=== PATIENT | female | born 1955 | race Caucasian/White ===

== ENCOUNTER 2020-05-01 12:50 | Inpatient (IN) | payer MEDICAID ==
[~2020-05-01] VITALS: Ht 147.3 cm; Wt 44.5 kg
[2020-05-01 15:56] LABS: BASOPHILS % (AUTO) 0.9 % (0.0-2.0); EOSINOPHILS % (AUTO) 2.1 % (1.0-6.0); HEMATOCRIT 42.4 % (36-46); HEMOGLOBIN 13.9 g/dL (12.0-16.0); LYMPHOCYTES # (AUTO) 2.4 K/uL (1.0-4.8); LYMPHOCYTES % (AUTO) 37.2 % (22.0-44.0); MEAN CORPUSCULAR HGB CONC 32.9 G/dL (31.0-37.0); MEAN CORPUSCULAR VOLUME 88 fL (80-100); MONOCYTES # (AUTO) 0.5 K/uL (0.1-1.0); MONOCYTES % (AUTO) 8.2 % (2.0-9.0); NEUTROPHILS # (AUTO) 3.3 K/uL (1.8-7.7); NEUTROPHILS % (AUTO) 51.6 % (40.0-70.0); PLATELET COUNT (AUTO) 286 K/uL (150-450); RED BLOOD CELL COUNT(AUTO) 4.81 MIL/uL (4.00-5.20); RED CELL DISTRIBUTION WIDTH 15.3 % (11.5-14.5)
[2020-05-01 16:26] LABS: ANION GAP 9 mmol/L (8-16); CALCIUM, TOTAL 9.1 mg/dL (8.8-10.5); CARBON DIOXIDE 30 mmol/L (22-29); CHLORIDE 101 mmol/L (98-107); CREATININE 0.64 mg/dL (0.60-1.30); GLOMERULAR FILTR. RATE CALC > 60 mL/min (>60); GLUCOSE,RANDOM 123 mg/dL (70-110); POTASSIUM 3.9 mmol/L (3.5-5.1); SODIUM SERUM 140 mmol/L (136-145); UREA NITROGEN, BLOOD 7 mg/dL (7-18)
[2020-05-01 16:31] LABS: ALANINE AMINOTRANSFERASE 29 U/L (12-78); ALBUMIN 3.9 g/dL (3.4-5.0); ALKALINE PHOSPHATASE 105 U/L (46-116); ASPARTATE AMINOTRANSFERASE 29 U/L (15-37); BILIRUBIN,TOTAL 0.6 mg/dL (0.1-1.0); TOTAL PROTEIN, SERUM 7.4 g/dL (6.4-8.2)
[2020-05-01] MEDS ORDERED: HALOPERIDOL 5 MG TABLET PO PRN (17:15)
[2020-05-01] MEDS ORDERED: LORazepam 2 MG TABLET PO PRN (17:15)
[2020-05-01 20:45] VITALS: BP 100/51
[2020-05-02] MEDS ORDERED: PETROLATUM,WHITE 28 GM JELLY TP PRN (08:30)
[2020-05-02] MEDS ORDERED: MAG HYDROX/AL HYDROX/SIMETH ES 30 ML SUSPENSION UDCUP PO PRN (08:30)
[2020-05-02] MEDS ORDERED: ACETAMINOPHEN 325 MG TABLET PO PRN (08:30)
[2020-05-02] MEDS ORDERED: MAGNESIUM HYDROXIDE SUSPENSION 30 ML UDCUP PO PRN (08:30)
[2020-05-02] MEDS ORDERED: BACITRACIN 28.4 GM OINTMENT TP PRN (08:30)
[2020-05-02] MEDS ORDERED: LOPERAMIDE HCL 2 MG CAPSULE PO PRN (08:30)
[2020-05-02] MEDS ORDERED: ONDANSETRON HCL 4 MG TABLET PO PRN (08:30)
[2020-05-02] MEDS ORDERED: CloNIDine HCL 0.1 MG TABLET PO PRN (08:30)
[2020-05-02] MEDS ORDERED: DOCUSATE SODIUM 100 MG CAPSULE PO PRN (08:30)
[2020-05-02] MEDS ORDERED: OMEPRAZOLE 20 MG CAPSULE PO PRN (08:30)
[2020-05-02] MEDS ORDERED: IBUPROFEN 600 MG TABLET PO PRN (08:30)
[2020-05-02] MEDS ORDERED: ALBUTEROL SULFATE HFA 90 MCG/PUFF 8 GM INHALER IH PRN (08:30)
[2020-05-02] MEDS ORDERED: BENZOCAINE/MENTHOL LOZENGE MM PRN (08:30)
[2020-05-02] MEDS: OLANZapine 5 MG TABLET PO SCH ×2 (12:15→16:44)
[2020-05-02] MEDS ORDERED: OLANZapine 5 MG TABLET PO SCH (17:00)
[2020-05-03] MEDS: OLANZapine 5 MG TABLET PO SCH ×2 (08:51→17:00)
[2020-05-03 16:02] VITALS: BP 119/70
[2020-05-04] MEDS: ZOLPIDEM TARTRATE 10 MG TABLET PO PRN (00:40)
[2020-05-04] MEDS: OLANZapine 5 MG TABLET PO SCH ×2 (08:38→17:00)
[2020-05-04] MEDS: GABAPENTIN 300 MG CAPSULE PO SCH (17:00)
[2020-05-05] MEDS: GABAPENTIN 300 MG CAPSULE PO SCH ×2 (08:59→17:00)
[2020-05-05] MEDS: OLANZapine 5 MG TABLET PO SCH ×2 (09:00→17:00)
[2020-05-06 00:34] VITALS: BP 129/65
[2020-05-06] MEDS: ZOLPIDEM TARTRATE 10 MG TABLET PO PRN ×2 (02:10→20:31)
[2020-05-06] MEDS: GABAPENTIN 300 MG CAPSULE PO SCH ×2 (09:00→16:39)
[2020-05-06] MEDS: OLANZapine 5 MG TABLET PO SCH ×2 (09:00→16:40)
[2020-05-07] VITALS: BP 117/61
[2020-05-07] MEDS: GABAPENTIN 300 MG CAPSULE PO SCH ×2 (08:14→16:40)
[2020-05-07] MEDS: OLANZapine 5 MG TABLET PO SCH ×2 (08:14→16:41)
[2020-05-07 16:21] VITALS: BP 136/64
[2020-05-08] MEDS: GABAPENTIN 300 MG CAPSULE PO SCH ×2 (08:07→16:23)
[2020-05-08] MEDS: OLANZapine 5 MG TABLET PO SCH ×2 (08:07→16:23)
[2020-05-08 08:12] VITALS: BP 112/63
[2020-05-08] MEDS ORDERED: LORazepam 2 MG/ML VIAL ONE (10:53)
[2020-05-08] MEDS ORDERED: DiphenhydrAMINE HCL 50 MG/ML VIAL ONE (10:54)
[2020-05-08] MEDS ORDERED: HALOPERIDOL LACTATE 5 MG/ML VIAL ONE (10:54)
[2020-05-08] MEDS ORDERED: DiphenhydrAMINE HCL 50 MG/ML VIAL IM ONE (12:15)
[2020-05-08] MEDS ORDERED: LORazepam 2 MG/ML VIAL IM ONE (12:15)
[2020-05-08] MEDS ORDERED: HALOPERIDOL LACTATE 5 MG/ML VIAL IM ONE (12:15)
[2020-05-08 16:19] VITALS: BP 106/63
[2020-05-09] MEDS: GABAPENTIN 300 MG CAPSULE PO SCH ×3 (08:50→17:00)
[2020-05-09] MEDS: OLANZapine 5 MG TABLET PO SCH ×3 (08:50→17:00)
[2020-05-09 17:43] VITALS: BP 128/77
[2020-05-10] VITALS: BP 103/76
[2020-05-10] MEDS: GABAPENTIN 300 MG CAPSULE PO SCH ×2 (08:44→17:00)
[2020-05-10] MEDS: OLANZapine 5 MG TABLET PO SCH ×2 (08:44→17:00)
[2020-05-11 02:04] VITALS: BP 110/68
[2020-05-11] MEDS: GABAPENTIN 300 MG CAPSULE PO SCH ×2 (08:13→16:30)
[2020-05-11] MEDS: OLANZapine 5 MG TABLET PO SCH ×2 (08:14→16:30)
[2020-05-11 16:15] VITALS: BP 111/72
[2020-05-12 04:35] VITALS: BP 105/66
[2020-05-12 08:11] VITALS: BP 114/73
[2020-05-12] MEDS: OLANZapine 5 MG TABLET PO SCH ×2 (08:11→16:37)
[2020-05-12] MEDS: GABAPENTIN 300 MG CAPSULE PO SCH ×2 (08:11→16:37)
[2020-05-12 08:12] VITALS: BP 114/73
[2020-05-12 16:50] VITALS: BP 112/68
[2020-05-13 04:42] VITALS: BP 110/73
[2020-05-13] MEDS: GABAPENTIN 300 MG CAPSULE PO SCH ×2 (08:00→17:50)
[2020-05-13] MEDS: OLANZapine 5 MG TABLET PO SCH ×2 (08:00→17:50)
[2020-05-13 08:08] VITALS: BP 119/68
[2020-05-13 16:06] VITALS: BP 121/73
[2020-05-14] MEDS: OLANZapine 5 MG TABLET PO SCH ×2 (07:59→16:03)
[2020-05-14] MEDS: GABAPENTIN 300 MG CAPSULE PO SCH ×2 (07:59→16:03)
[2020-05-14 08:21] VITALS: BP 129/76
[2020-05-14 16:09] VITALS: BP 126/71
[2020-05-15 04:12] VITALS: BP 126/63
[2020-05-15 08:15] VITALS: BP 106/58
[2020-05-15] MEDS: OLANZapine 5 MG TABLET PO SCH ×2 (08:30→16:31)
[2020-05-15] MEDS: GABAPENTIN 300 MG CAPSULE PO SCH ×2 (08:30→16:31)
[2020-05-16 02:44] VITALS: BP 110/64
[2020-05-16] MEDS: GABAPENTIN 300 MG CAPSULE PO SCH (08:26)
[2020-05-16] MEDS: OLANZapine 5 MG TABLET PO SCH (08:27)
[2020-05-16] MEDS ORDERED: OLAN5TAB2 PO (13:00)
[2020-05-16] MEDS ORDERED: GABA-1181 PO (13:00)
== END 2020-05-16 14:30 | disposition home or self-care (01) | DRG 885 ==
LOC: EMS 12:51 → B3A 17:13 → UNDOADMIN 18:38 → B3A 23:30
PROVIDERS: ADMIT Psychiatry & Neurology Psychiatry; ATTEND Psychiatry & Neurology Psychiatry
DX: F29 Unspecified psychosis not due to a substance or known physiological condition (principal); F12.90 Cannabis use, unspecified, uncomplicated; F15.90 Other stimulant use, unspecified, uncomplicated; F17.210 Nicotine dependence, cigarettes, uncomplicated; G47.00 Insomnia, unspecified; F41.9 Anxiety disorder, unspecified; E05.00 Thyrotoxicosis with diffuse goiter without thyrotoxic crisis or storm; K59.00 Constipation, unspecified; Z56.0 Unemployment, unspecified; Z59.0 Homelessness; Z91.19 Patient's noncompliance with other medical treatment and regimen
CPT/HCPCS: G0480; J1200; J1630; J2060